=== PATIENT | female | born 1940 | race Caucasian/White ===

== ENCOUNTER 2016-06-16 19:48 | Observation (INO) | payer MEDICARE, OTHER ==
[~2016-06-16] VITALS: Ht 160 cm; Wt 78.0 kg
[2016-06-16 20:01] VITALS: BP 191/84; PULSE 88; RESP 16; O2SAT 94
[2016-06-16 21:01] LABS: BASOPHILS % (AUTO) 0.2 % (0-3); MONOCYTES % (AUTO) 8.1 % (4-12); Mean Corpuscular Hemoglobin 28.1 pg (27.0-35.0); Mean Corpuscular Volume 85.4 fL (81-100); NEUTROPHILS % (AUTO) 76.7 % (40-74); Platelet Count 182 bil/L (150-400)
[2016-06-16 21:20] LABS: TROPONIN T 0.01 ug/L (0.0-0.011)
--- NOTE | 2016-06-16 21:23 | ED.REPORT ---
HPI-Chest Pain 40 and Over Date of Service Jun 16, 2016 ED Provider: Dr. Omar Nuñez D.O. A 76 year old female with a medical history including IDDM, hypertension, and [place] s/p CABG (2015) presents to the ED via EMS with right-sided chest pain onset 1330 today. The pain lasted for three hours, with radiation to her right arm and right shoulder blade. The patient was given 4x baby ASA in clinic, after her symptoms had resolved spontaneously. EMS found her hypertensive at 210/98 with otherwise normal vital signs. Her symptoms are similar to those from her previous MO. Nursing Notes Stated Complaint: CHEST PAIN Chief Complaint: Chest Pain Nursing Notes Reviewed: Yes Allergies: Coded Allergies: Cephalosporins (Verified Allergy, Intermediate, 06/16/16) Quinolones (Verified Allergy, Intermediate, 06/16/16) Sulfa (Sulfonamide Antibiotics) (Verified Allergy, Intermediate, 06/16/16) cefaclor (Verified Allergy, Intermediate, 06/16/16) ciprofloxacin (Verified Allergy, Intermediate, 06/16/16) exenatide (Verified Allergy, Intermediate, 06/16/16) lisinopril (Verified Allergy, Intermediate, 06/16/16) metformin (Verified Allergy, Intermediate, 06/16/16) neomycin (Verified Allergy, Intermediate, 06/16/16) nitrofurantoin (Verified Allergy, Intermediate, 06/16/16) penicillamine (Verified Allergy, Intermediate, 06/16/16) pioglitazone (Verified Allergy, Intermediate, 06/16/16) Scheduled Aspirin Chew (Aspirin Chew) 81 Mg Chew 81 MG PO DAILY Clopidogrel Bisulfate (Plavix) 75 Mg Tablet 75 MG PO DAILY Insulin Glargine (Lantus U100 Insulin Vial) 100 Unit/Ml Vial 15 UNIT SUBQ BID Losartan Potassium (Losartan Potassium) 25 Mg Tablet 25 MG PO BID Metoprolol Tartrate (Metoprolol Tartrate) 50 Mg Tablet 50 MG PO BID Rosuvastatin Calcium (Rosuvastatin Calcium) 20 Mg Tablet 20 MG PO HS General Time Seen by MD: 21:23 Chief Complaint Chest pain Hx Obtained From: Patient Arrived By: Ambulance Sudden in Onset?: Yes Onset Occurred: 5 - 8 hours ago Symptom Duration: 1 - 4 hours Location: : Chest right Quality: Painful Radiation: : Arm right: Back (Right shoulder blade) Severity: Current: No pain currently Severity: Maximum: Moderate Associated with: Denies: Fever Context Related History: Reports: Diabetes mellitus, Hypertension, Myocardial infarction Recent Healthcare: Recent doctor visit Similar Sx Previous: Yes Past Medical History Past Medical History IDDM MO Hypertension Colon polyps Diverticular disease - 1992 Hemorrhoids - 1962 Cataracts - 2015 Migraines MS - 1965 Asthma Osteoarthritis Past Surgical History CAPG January 2016 Hysterectomy Smoking History Former Smoker Social History Lives on [address] Other Social History: Good social support, Ambulatory Status Independent Review of Systems Review of Systems Note: + hypertension (210/98) Constitutional: Denies: Fever Cardiovascular: Reports: Chest pain GI: Denies: Vomiting Musculoskeletal: Reports: Back pain (Right shoulder blade) Complete sys rev & neg: except as marked. Physical Exam Initial Vital Signs Vital Signs (First) Date Time Temp Pulse Resp B/P Pulse Ox O2 Delivery O2 Flow Rate FiO2 06/16/16 20:01 36.9 88 16 191/84 94 Room Air Initial VS: Reviewed Head / Eyes: Atraumatic, Normocephalic ENT: Conjunctiva normal, No scleral icterus Neck: Supple, Full range of motion Skin: Warm, Dry, No cyanosis Neurologic: Alert, Oriented, Nonfocal Psychiatric: Mood/affect normal, Behavior normal, Normal thought content General/Constitutional: Awake, Alert, No acute distress Respiratory / Chest: Breath sounds NL, Breath sounds = bilat, No respiratory distress Midline sternotomy scar healing well Cardiovascular: Heart rate NL, Regular rhythm, Heart sounds NL Lower Ext Edema: Positive: Bilateral 1+ Abdomen: Soft, Non-tender Interpretation & Diagnostics Lab Results Interpretation Result Diagram: 06/16/16205206/16/162052 Test 06/16/16 20:30 06/16/16 20:53 Urine Color Straw (YELLOW) Urine Appearance Clear (CLEAR,HAZY) Urine pH 7.0 (5.0-8.0) Urine Specific [place] 1.015 (1.003-1.035) Urine Protein Negativemg/dL (NEG,TRACE) Urine Glucose (UA) 100mg/dL (NEGATIVE) Urine Ketones Negativemg/dL (NEGATIVE) Urine Occult Blood Negative (NEGATIVE) Urine Nitrite Negative (NEGATIVE) Urine Bilirubin Negative (NEGATIVE) Urine Urobilinogen Normalmg/dL (NORMAL) Urine Leukocyte Esterase Negative (NEGATIVE) Urine RBC 0-2/hpf (0-2) Urine WBC 0-5/hpf (0-5) Urine Epithelial Cells Few/hpf (NONE-MOD) Urine Crystals None seen (NONE SEEN) Urine Bacteria Few/hpf (NONE-FEW) Urine Hyaline Casts None/lpf (NONE) Urine Granular Casts None seen (NONE SEEN) Urine Waxy Casts None seen (NONE SEEN) Urine Red Blood Cell Casts None seen (NONE SEEN) Urine White Blood Cell Casts None seen (NONE SEEN) Urine Mucus None seen (None Seen) Urine Trichomonas None seen (NONE SEEN) Urine Yeast None (NONE SEEN) Urine Culture Reflexed Not indicated White Blood Count 9.9th/mm3 (3.8-10.1) Red Blood Count 5.01mil/mm3 (3.90-5.20) Hemoglobin 14.1g/dL (12.0-15.6) Hematocrit 42.8% (35.0-46.0) Mean Corpuscular Volume 85.4fL (81-100) Mean Corpuscular Hemoglobin 28.1pg (27.0-35.0) Mean Corpuscular Hemoglobin Concent 32.9% (32.0-37.0) Red Cell Distribution Width 15.2% (12.3-15.4) Platelet Count 182bil/L (150-400) Neutrophils (%) (Auto) 76.7% (40-74) Lymphocytes (%) (Auto) 13.7% (14-46) Monocytes (%) (Auto) 8.1% (4-12) Eosinophils (%) (Auto) 1.0% (0-5) Basophils (%) (Auto) 0.2% (0-3) Hold Urine Received (Received) Sodium Level 141mEq/L (134-144) Potassium Level 3.4mEq/L (3.5-5.2) Chloride Level 102mEq/L (97-108) Carbon Dioxide Level 25mmol/L (18-29) Blood Urea Nitrogen 13mg/dL (8-27) Creatinine 0.63mg/dL (0.57-1.00) Estimat Glomerular Filtration Rate 132mL/min (>59) Glucose Level 187mg/dL (60-99) Calcium Level 8.2mg/dL (8.5-10.1) Total Bilirubin 0.3mg/dL (0.0-1.2) Aspartate Amino Transf (AST/SGOT) 14U/L (0-50) Alanine Aminotransferase (ALT/SGPT) 14U/L (0-32) Alkaline Phosphatase 79U/L (25-165) Pro-B-Type Natriuretic Peptide 1163pg/mL (0-738) Total Protein 6.5g/dL (6.4-8.4) Albumin 3.8g/dL (3.4-5.0) ECG Interpretation ECG Interpretation: Sinus rhythm rate 89 Time: 19:57 Interpreted by: ED physician X-Ray Chest Interpretation Chest Xray Interpretation: IMPRESSION: Mild elevation of the right hemidiaphragm, chronicity uncertain given the absence of comparison films. No source of chest pain is found. Dictated by: Jae Garcia M.D. on 06/16/2016 at 21:29 View: Portable, 1 view Interpretation / Wet Read by: Interpret - Radiologist Re-Eval/Medical Decision Med Decision/Clinical Course We will admit her for serial troponins and consider stress testing: She had 90 minutes of potential ischemic chest pain. The pain is similar to prior pain that prompted her to undergo coronary artery bypass grafting. She lives on [address] and there are no helicopters flying right now. Source of Hx: Old records Time of Eval: 22:00 Patient Status: Condition improved Re-Evaluation/Progress Note: Discussed with patient x-ray results, diagnosis, and plan for admit. Patient agrees with plan for care and all questions were addressed. Consultation : Referral / Consult Name: Raysa Hidalgo Consulted With: Hospitalist Call Returned at: 01:45 Recorder Of Deeds: Agrees with eval, Agrees with plan, Accepts admit Counseled Regarding: Diagnosis, Need for admission Discharge & Departure Primary Impression: Chest pain Chest pain type: precordial chest pain Qualified Code: R07.2 - Precordial pain Disposition: ADMITTED TO HOSPITAL Discharge Condition All VS Reviewed: Yes Condition: Stable Referrals: DORETHA VARGAS MD [facility] Karolina Attestation Portions of this note were transcribed by Janice Obrien. I, Dr. Nuñez, personally performed the history, physical exam, and medical decision-making; I reviewed and confirmed the accuracy of the information in the transcribed note. Signed by: Karolina Biggs, 06/17/2016, 02:34 copies to: DORETHA VARGAS MD; [facility] Omar Nuñez DO Jun 16, 2016 21:23 JANICE OBRIEN Jun 16, 2016 21:28
[2016-06-16 21:31] LABS: Magnesium 1.8 mg/dL (1.6-2.6)
--- NOTE | 2016-06-16 21:31 | DRSVH ---
PROCEDURE: X-RAY CHEST ONE VIEW, PORTABLE ([id number]) INDICATIONS: CHEST PAIN TECHNIQUE: One view of the chest was acquired. COMPARISON: None. FINDINGS: Surgical changes and devices: None. Lungs and pleura: No pleural effusions or pneumothorax. Lungs are clear. Mediastinum: Mediastinal contours appear normal. Heart size is normal. Bones and chest wall: No suspicious bony lesions. Overlying soft tissues appear unremarkable. IMPRESSION: Mild elevation of the right hemidiaphragm, chronicity uncertain given the absence of com parison films. No source of chest pain is found. Dictated by: Jae Garcia M.D. on 06/16/2016 at 21:29 Approved by: Jae Garcia M.D. on 06/16/2016 at 21:29
[2016-06-16 21:40] VITALS: BP 163/86; PULSE 88; RESP 18; O2SAT 97
[2016-06-16] MEDS ORDERED: Nitroglycerin 2% 1 Gm Ointment TOPICAL ONE (22:00)
[2016-06-17] VITALS (10 sets, daily range): BP systolic 139–210; BP diastolic 61–97; PULSE 68–94; RESP 12–18; O2SAT 93–97
[2016-06-17] MEDS ORDERED: Insulin GLARgine 100 Unit/mL Syringe SUBQ ONE
[2016-06-17] MEDS ORDERED: Senna-Docusate 8.6-50 mg Tablet PO PRN (01:50)
[2016-06-17] MEDS ORDERED: Alum-Mag Hydrox-Simeth 30 mL Suspension PO PRN (01:50)
[2016-06-17] MEDS ORDERED: Ondansetron 2 mg/mL 2 mL Inj IVPUSH PRN (01:50)
[2016-06-17] MEDS ORDERED: Polyethylene Glycol (PEG) 17 Gm Powder PO PRN (01:50)
[2016-06-17] MEDS ORDERED: Atropine 1 mg/10 mL (Code) Syringe IVPUSH PRN (02:20)
[2016-06-17 02:57] LABS: APPEARANCE,URINE CLEAR (CLEAR,HAZY); COLOR,URINE STRAW (YELLOW); OCCULT BLOOD,URINE NEGATIVE (NEGATIVE); UROBILINOGEN,URINE NORMAL (NORMAL)
[2016-06-17] MEDS: 0.9% Sodium Chloride 1,000 ML IV SCH ×2 (02:59→18:22)
--- NOTE | 2016-06-17 03:00 | NUR ---
Admit and headache. Patient was brought to the [facility] by an community development technician. Patient is able to ambulate under her own power. Patient settled in bed and placed on tele. Sinus rhythm at 70 noted. Patient is free from chest pain, shortness of breath and weakness. Admission completed and patient assessed. Patient was medicated with Tylenol for a headache. Patient currently has an inch of nitro paste on her left upper chest. Patient resting comfortably in bed.
[2016-06-17 03:04] LABS: INR 1.04 ratio
[2016-06-17 03:38] LABS: TROPONIN T 0.01 ug/L (0.0-0.011)
[2016-06-17 03:41] LABS: Magnesium 1.7 mg/dL (1.6-2.6)
--- NOTE | 2016-06-17 03:42 | PCM.HPMED ---
Subjective Date of Service Jun 17, 2016 Primary Provider: Admitting Physician: Raysa Hidalgo DO Primary Care Physician: Gasper Rose MD Attending Physician: Raysa Hidalgo DO Admit Status: From the Emergency Department Chief Complaint: Acute Chest pain History of Present Illness: A 76 year old female with a medical history including DM on Lantus 15 mg twice a day, hypertension on metoprolol and losartan, and [place] s/p CABG (2015) presents to the ED via EMS with right-sided chest pain onset 1330 today. The pain lasted for three hours, and described as a chest pressure substernal with radiation to her right arm and right shoulder blade. Pain occurred upon she was at rest. Patient says that she had just eaten her birthday lunch which consisted of a hamburger and ivorian fries. Patient describes symptoms similar to prior RI except that she denied having diaphoresis on this occasion. Associated symptoms included eructations. Patient denied previous history of angina, .diaphoresis, nausea, vomiting, abdominal pain, fever, shortness of breath, dyspnea, history of acid reflux, focal neurological signs. The patient was given 4x baby ASA and her symptoms had resolved spontaneously. EMS found her hypertensive at 210/98 with otherwise normal vital signs. Her symptoms are similar to those from her previous RI. Patient currently attends cardiac rehabilitation twice per week. In the ED temperature 36.9, pulse 88, blood pressure 163/86 down from 191/84, respirations 18, pulse oximetry 97% on room air. Hemogram: Within normal limits Chemistry: Sodium 141, potassium 3.4L, glucose 187, calcium 8.2, magnesium 1.8, troponin was 0.010, BMP 1163. Chest x-ray mild elevation of the right hemidiaphragm chronically uncertain given the absence of comparison films no source of chest pain found. Review of Systems: Comprehensive review of systems was conducted and found to be negative except for that mentioned in the history present illness. Allergies Coded Allergies: Cephalosporins (Verified Allergy, Intermediate, 06/16/16) Quinolones (Verified Allergy, Intermediate, 06/16/16) Sulfa (Sulfonamide Antibiotics) (Verified Allergy, Intermediate, 06/16/16) cefaclor (Verified Allergy, Intermediate, 06/16/16) ciprofloxacin (Verified Allergy, Intermediate, 06/16/16) exenatide (Verified Allergy, Intermediate, 06/16/16) lisinopril (Verified Allergy, Intermediate, 06/16/16) metformin (Verified Allergy, Intermediate, 06/16/16) neomycin (Verified Allergy, Intermediate, 06/16/16) nitrofurantoin (Verified Allergy, Intermediate, 06/16/16) penicillamine (Verified Allergy, Intermediate, 06/16/16) pioglitazone (Verified Allergy, Intermediate, 06/16/16) Home Medications Metoprolol tartrate 50 mg twice a day Rosuvastatin 20 mg daily Losartan 25 mg twice a day Plavix 75 mg daily Lantus U1 100, 15 units 2 times per day Aspirin 81 mg daily Vitamin D 3 1000 units daily Mupirocin PMH IDDM RI Hypertension Colon polyps Diverticular disease - 1992 Hemorrhoids - 1962 Cataracts - 2015 Migraines MS - 1964 Asthma Osteoarthritis Surgical History CABG January 2016 Hysterectomy Social History Hx Alcohol Use: Yes Hx Substance Use: No Smoking Status: Former Smoker Living Arrangement: with Family Exam Vital Signs Vital Sign - Last Date Time Temp Pulse Resp B/P Pulse Ox O2 Delivery O2 Flow Rate FiO2 06/16/16 21:40 36.9 88 18 163/86 97 Room Air Exam General: Alert and oriented 3 no acute distress resting comfortably in bed without pain HEENT: Normocephalic atraumatic, eyes PERRLA, EOMI, neck supple no adenopathy, no JVD, no masses, throat oropharynx appears normal no erythema Lungs: Lungs with mild crackles bilaterally Heart: Regular rate and rhythm no murmurs Abdomen: Soft nontender normal bowel tones, no rebound no guarding Extremities: Pulses equal and symmetric bilaterally upper/lower extremity, no edema Neurological: Cranial nerves intact 2 through 12 grossly Skin: Warm and dry Lab and Diagnostics Result Diagram: 06/16/16205206/16/162052 Assessment & Plan A 76 year old female with a medical history including IDDM, hypertension, and RI s/p CABG (2015) presents to the ED via EMS with right-sided chest pain onset 1330 today. The pain lasted for three hours, with radiation to her right arm and right shoulder blade. The patient was given 4x baby ASA in clinic, after her symptoms had resolved spontaneously. EMS found her hypertensive at 210/98 with otherwise normal vital signs. Her symptoms are similar to those from her previous RI. #1 chest pain, Present on Admission, active -EKG for the morning -Troponin I X 3, CPK-MB, ordered and pending -Consider cardiac stress testing in AM following negative troponin x3 -O2 Sats keep > 94% -IV fluids -Continue home Metoprolol -Continue home Losartan patient has allergy to Lisinopril -Continue home rosuvastatin -Morphine for pain control -Nitro SL,(PRN) -Continue home Aspirin + Plavix 75mg daily to follow -Heparin if troponin comes back positive -Continuous Cardiac Monitoring/BP monitoring -Cardio Consult (in AM) -Patient's fur dressing supervisor is Aníbal Rose -Labs (Lipid Panel, CBC, CMP, PT/PTT/INR), referred impending -NPO for now -Cardiac Rehab on D/C if RI #Hypokalemia, present on admission, active - Potassium 3.4 -We will replete potassium #Hyperglycemia, present on admission, active -Glucose 184 -Will start low-dose correctional insulin -Globin A1c ordered impending Other chronic problems #DM -Continue home Lantus 15 units of U 100 twice a day Hypertension - Continue home medications metoprolol, losartan as previously stated Diverticulosis, presumed stable MS, presumed stable Asthma, presumed stable Osteoarthritis, presumed stable -Patient Tylenol daily at bedtime GI and bowel prep as needed Disposition: Admitted to in patient service secondary to severity of presenting symptoms, treatment plan, complexity of clinical work up, and risk of adverse events. CODE STATUS: Full PCP: Gasper Rose DVT prophylaxis: Patient on heparin as above Pain Evaluation: Adequate Pain Control Resuscitation Status: CPR: Attempt Resuscitation Attending Statement The patient was seen and examined together with house staff on 06/17/2016 and I have added additional information to the note above. Jorge Cornell DO Jun 17, 2016 02:53 Raysa Hidalgo DO Jun 17, 2016 04:37
[2016-06-17] MEDS ORDERED: Glucose 40% Oral Gel 15 Gm Tube PO PRN ×2 (03:50→18:25)
[2016-06-17] MEDS: Insulin LISPRO 300 Unit/3 mL Inj SUBQ SCH ×5 (08:00→20:12)
[2016-06-17] MEDS: Sodium Chloride LOK Flush 10 mL Syringe IVFLUSH SCH ×2 (08:30→17:32)
[2016-06-17] MEDS ORDERED: CLOP75TA3 PO (10:14)
[2016-06-17] MEDS ORDERED: ROSU20TA27 PO (10:14)
[2016-06-17] MEDS ORDERED: LOSA25TA21 PO (10:14)
[2016-06-17] MEDS ORDERED: METO50TA3 PO (10:14)
[2016-06-17] MEDS ORDERED: INSU100V7 SUBQ (10:14)
[2016-06-17] MEDS ORDERED: ASPI81TA3 PO (10:14)
--- NOTE | 2016-06-17 11:34 | NUR ---
Case Management: Clarification of patient status: observation on 06/17/16 per MD order. Zion Bazzi RN
[2016-06-17] MEDS: Insulin GLARgine 100 Unit/mL Syringe SUBQ SCH ×2 (13:00→20:06)
--- NOTE | 2016-06-17 15:45 | NUR ---
MIBI Patient npo since midnight, denies chest pain, nausea or sob. Amb indep steady gait. Patient down to NM via wheelchair for MIBI. See vitals, tele SR.
[2016-06-17] MEDS ORDERED: hydrALAZINE 20 mg/mL Inj IV STA (15:54)
--- NOTE | 2016-06-17 17:52 | NUR ---
Case Management: DAWSON explained to patient at 1550, all questions answered. Signed original placed in chart, copy given to patient. "How Medicare Covers Self-Administered Drugs Given in Hospital Outpatient Settings" given to patient. Heena Garcia RN
[2016-06-17] MEDS ORDERED: Potassium Chloride 20 mEq SR Tablet PO ONE (18:00)
--- NOTE | 2016-06-17 18:06 | PCM.PNMED ---
Subjective Date of Service Jun 17, 2016 Subjective Mrs. Cookie Li is a pleasant 76-year-old lady with a medical history including DM on Lantus 15 mg twice a day, hypertension on metoprolol and losartan, and [place] s/p CABG (2015) presents to the ED via EMS with right-sided chest pain onset 1330 today. The pain lasted for three hours, and described as a chest pressure substernal with radiation to her right arm and right shoulder blade. Pain occurred upon she was at rest. Patient says that she had just eaten her birthday lunch which consisted of a hamburger and italian fries. Patient describes symptoms similar to prior IN except that she denied having diaphoresis on this occasion. Associated symptoms included eructations. Patient denied previous history of angina,.diaphoresis, nausea, vomiting, abdominal pain, fever, shortness of breath, dyspnea, history of acid reflux, focal neurological signs. The patient was given 4x baby ASA and her symptoms had resolved spontaneously. EMS found her hypertensive at 210/98 with otherwise normal vital signs. Her symptoms are similar to those from her previous IN. Patient currently attends cardiac rehabilitation twice per week. Overnight events: No acute overnight events to speak of. Today: Patient states she feels great and has no other complaints. Exam Vital Signs Vital Sign - Last Date Time Temp Pulse Resp B/P Pulse Ox O2 Delivery O2 Flow Rate FiO2 06/17/16 11:21 36.7 81 15 197/75 95 Room Air Intake and Output 06/16/16 06/16/16 06/17/16 Cumulative From/Thru 15:00 23:00 07:00 06/16/16 20:01 - 06/17/16 05:26 Intake Total 350 ml 350 ml Output Total 200 ml 200 ml Balance 150 ml 150 ml Intake Oral 350 ml 350 ml Output Urine Total 200 ml 200 ml # Bowel Movements 0 0 Exam General: Elderly lady sitting in the chair appearing younger than stated age in no acute distress, well-developed, well-nourished, appropriately interactive HEENT: Normocephalic, atraumatic. External ears without defect. Pupils equal, round, and reactive to light and accommodation. Anicteric sclerae, moist conjunctivae, and no lid lag. Oropharynx free of erythema and cobble stoning with moist mucosa. Neck: Supple with full range of motion. No jugular venous distension. No bruits. No lymphadenopathy or thyromegaly. Cardiovascular: Regular rate and rhythm with no murmurs, rubs, or gallops appreciated Pulmonary: Clear to auscultation bilaterally with no crackles, wheezes, or rhonchi. Normal respiratory effort with no use of accessory muscles. Abdomen: Bowel tones present. Soft, nontender, nondistended. No hepatosplenomegaly or masses appreciated. Extremities: No clubbing, cyanosis, edema, or lymphadenopathy appreciated. Skin: Normal temperature, turgor, and texture; no rash, ulcers, or subcutaneous nodules appreciated. Neurological: Cranial nerves grossly intact. Normal muscle strength, tone, and bulk. Reflexes, coordination, and sensory function within normal limits. No known gait impairment. Psychiatric: Normal mood and affect. Alert and oriented to person, place, and time. IVs and Medications Medications Reviewed: Medications were reviewed in detail Lab and Diagnostics Result Diagram: 06/16/16205206/16/162052 Assessment & Plan Mrs. Cookie Li is a pleasant 76 year old lady with a past medical history including IDDM, hypertension, and [place] s/p CABG (2015) presents to the ED via EMS with right-sided chest pain onset 1330 today. The pain lasted for three hours, with radiation to her right arm and right shoulder blade. The patient was given 4x baby ASA in clinic, after her symptoms had resolved spontaneously. EMS found her hypertensive at 210/98 with otherwise normal vital signs. Her symptoms are similar to those from her previous IN. Patient was to have exercise stress test today however blood pressure was not controlled plan for stress test tomorrow in the AM. 1. Chest pain, Present on Admission, Resolved. - EKG normal sinus rhythm and no ST depressions or elevations.. - Troponin I X 3, CPK-MB negative. - Nuclear medicine cardiac exercise stress test scheduled for today however blood pressure was not controlled. - Continue home rosuvastatin - Continue home Aspirin + Plavix 75mg daily to follow - Continuous Cardiac Monitoring/BP monitoring - Patient's dental treatment coordinator is Aníbal Rose. 2. Acute on chronic Hypertension, present on admission. Active. - Holding home metoprolol for stress test tomorrow. - Increased home Losartan from 25 twice a day to 50mg BID - We will consider adding amlodipine if this does not control blood pressure. 3. Hypokalemia, present on admission, active - Potassium 3.4 - We will replete potassium 4. Hyperglycemia, present on admission, active - Glucose 186 - Lantus at 1/2 home dose. - Hemiglobin A1c - pending - Nutritional correction this evening. Chronic problems DM -Continue 1/2 home Lantus 15 units of U 100 twice a day (7 units BID) Diverticulosis, presumed stable MS, presumed stable Asthma, presumed stable Osteoarthritis, presumed stable Patient Tylenol daily at bedtime Acetaminophen for mild pain when necessary. Bowel regimen Senna and MiraLAX scheduled and PRN. Zofran when necessary for nausea and vomiting. SubQ heparin held for now. SCDs in place. High-risk medications: IV morphine when necessary Disposition: Likely home tomorrow following exercise stress test. Pain Evaluation: Adequate Pain Control VTE Mechanical Devices: Intermittant Pneumatic CD Resuscitation Status: CPR: Attempt Resuscitation Attending Statement The patient was seen and examined together with Dr. Gupta on 06/17/2016 and I agree with the history, exam and plan as outlined in the note above. . MIKE GUPTA DO Jun 17, 2016 14:50 Gasper Waggoner MD Jun 18, 2016 08:24
--- NOTE | 2016-06-17 18:35 | NUR ---
Activity/HTN Patient returned to room at 1615, unable to complete MIBI r/t HTN, notified and meds ordered. Patient amb indep steady gait. See vitals. Tele SR. Plan for npo after midnight to finish MIBI.
[2016-06-17] MEDS ORDERED: hydrALAZINE 20 mg/mL Inj IV ONE (23:05)
--- NOTE | 2016-06-17 23:23 | NUR ---
Blood pressure. Notified by [facility] that the patient's blood pressure was in the 200's systolic. Patient assessed and found to be asymptomatic. Provider Ly notified and orders for IV hydralazine 10mg received and administered. Addendum: 06/17/16 at 2357 by JESSIE LEHMAN RN Patient responded well to blood pressure medications(BP 150/61). Patient complaint free and resting comfortably in bed.
[2016-06-18] VITALS (9 sets, daily range): BP systolic 135–197; BP diastolic 63–87; PULSE 80–102; RESP 12–20; O2SAT 94–96
[2016-06-18] MEDS: Sodium Chloride LOK Flush 10 mL Syringe IVFLUSH SCH ×3 (00:30→16:33)
[2016-06-18] MEDS: 0.9% Sodium Chloride 1,000 ML IV SCH (01:57)
[2016-06-18 02:43] LABS: BASOPHILS % (AUTO) 0.2 % (0-3); EOSINOPHILS % (AUTO) 1.2 % (0-5); MONOCYTES % (AUTO) 7.9 % (4-12); Mean Corpuscular Hemoglobin 27.8 pg (27.0-35.0); Mean Corpuscular Volume 84.9 fL (81-100); NEUTROPHILS % (AUTO) 70.8 % (40-74); Platelet Count 212 bil/L (150-400)
[2016-06-18] MEDS ORDERED: hydrALAZINE 20 mg/mL Inj IV ONE (03:10)
[2016-06-18] MEDS: Insulin LISPRO 300 Unit/3 mL Inj SUBQ SCH ×5 (08:00→17:46)
[2016-06-18] MEDS: Insulin GLARgine 100 Unit/mL Syringe SUBQ SCH (08:39)
--- NOTE | 2016-06-18 10:01 | NUR ---
Social Work: Initial Assessment / Readiness for d/c Data: Pt is a 76 y/o female admitted for chest pain. Pt's PCP is Dr Rose, pt's insurance is Medicare with [employer]. EMR reviewed. Readmit score not listed. BUDGET CONTROLLER met with pt at bedside, role explained. Pt states she lives on [address] with her in a single story home where she uses no DME. Pt states she drives, has no hx of HH or SNF, not LTC or VA benefits, and is not a caregiver. Pt states she does not have a DPOA and declined information stating she already has information. Pt will require a priority boarding pass for ferraubrey ride. Priority boarding pass in BUDGET CONTROLLER folder for MD to sign prior to d/c which will likely either be today or tomorrow. No other d/c planning needs anticipated at this time. BUDGET CONTROLLER will continue to follow. Assessment: Pt who is independent at baseline. Plan: Pt will d/c home via POV when medically stable. Priority boarding pass in BUDGET CONTROLLER folder for MD to sign prior to d/c which will likely either be today or tomorrow. No other d/c planning needs anticipated at this time. BUDGET CONTROLLER will continue to follow. JANICE Shukla Addendum: 06/18/16 at 1006 by JANICE ABREU Amended: Links added.
--- NOTE | 2016-06-18 12:10 | PCM.DIMED ---
MIKE GUPTA DO 06/18/16 1210: Discharge Instructions Date of Service Jun 18, 2016 Dates of Hospitalization Jun 17, 2016 at 00:48 Discharge Diagnosis Discharge Diagnosis 1. Chest pain, Present on Admission, Resolved. 2. Acute on chronic Hypertension, present on admission. Stable. 3. Hypokalemia, present on admission, Stable. 4. Hyperglycemia, present on admission, improving. Chronic problems DM -Continue 1/2 home Lantus 15 units of U 100 twice a day (7 units BID) Diverticulosis, presumed stable MS, presumed stable Asthma, presumed stable Osteoarthritis, presumed stable Diet Heart Healthy, Diabetic Call your provider Fever or Chills, Shortness of breath, Chest pain, Vomitting Patient Instructions Do not hesitate to call emergency services or your primary care physician if you experience any of the following. -High unrelenting fevers. -Uncontrolled vomiting. -Severe hypertension. -Syncope or loss of consciousness. -Chest pain or severe shortness of breath. Follow up with your primary care physician in 1-2 weeks time following your emergency department visit for medication checks and general well-being. Follow-up plan Continue home medications: - Aspirin 81 mg daily. - Clopidogrel 75 mg daily. - Rosuvastatin 20 mg daily. - Insulin per primary care physician. New/altered home medications: - Losartan 50 mg Twice per day. - Amlodipine 5 mg Twice per day. - Carvedilol 6.25 mg Twice per day. STOP MEDICATIONS: -- Metoprolol Tartrate 50 Twice per day. Follow-up Provider: Gasper Rose MD Follow-up with PCP in: 2 weeks Provider: Aníbal Rose MD Follow-up in: 2 weeks Miguel Epperson 06/18/16 1752: Discharge Instructions Medication Instructions STOP Metoprolol tartrate Gasper Waggoner MD 06/21/16 0746: Discharge Instructions Attending's Statement The patient was seen and examined together with Dr. Gupta on 06/18/2016 and I agree with the history, exam and plan as outlined in the note above. . MIKE GUPTA DO Jun 18, 2016 12:10 Miguel Epperson Jun 18, 2016 17:52 Gasper Waggoner MD Jun 21, 2016 07:46
--- NOTE | 2016-06-18 16:35 | DRSVH ---
PROCEDURE: 2 DAY STRESS TEST Rest and exercise myocardial perfusion SPECT with gated imaging and ejection fraction RADIOPHARMACEUTICAL: 7.8 mCi Tc-99m tetrafosmin IV at rest and 28.3 mCi Tc-99m tetrafosmin IV at peak exercise. [id number] was performed. INDICATIONS: 76 year-old woman with chest Pain. She has coronary artery disease with history of myoc ardial infarction and coronary artery bypass grafting. Evaluate myocardial ischemia. TECHNIQUE: Radiopharmaceutical was injected at peak stress test, and also at rest. SPECT images wer e obtained. SPECT myocardial perfusion images were displayed in short axis, horizontal long axis, an d vertical long axis views. Gated images were reviewed using [employer] software. COMPARISON: None. CARDIAC STRESS: A standard Kofi treadmill exercise tolerance test was performed by the patient under the supervision of an attending staff. The patient exercised for 6 minutes and 0 seconds; functional aerobic impair ment (GENI) is -10 %. Hemodynamic data: There is normal blood pressure and heart rate response to exercise stress. Patien t achieved 97% of maximum predicted heart rate at peak exercise. Symptoms: Patient denied chest pain during exercise. EKG: No diagnostic EKG changes of ischemia; frequent PVCs. FINDINGS: Raw data: There is good myocardial labeling by radiotracer. No significant motion artifacts. Left ventricle function: Gated images demonstrate normal left ventricle wall thickening. No segment al wall motion abnormality. No transient ischemic dilation. The left ventricle resting end-diastoli c volume is normal. Left ventricle stress ejection fraction is 62%; normal values are above 45%. Myocardial perfusion: There is a small, mild, fixed anteroapical perfusion defect which is resolved on prone imaging, consistent with attenuation artifact. There is otherwise normal distribution of act ivity in the left and right ventricular myocardium. No reversible perfusion defects to suggest myoca rdial ischemia. IMPRESSION: 1. Normal myocardial perfusion images. 2. Normal left ventricular volume and systolic function. 3. Above average exercise capacity. No chest pain or diagnostic EKG changes for ischemia. PQRS ATTESTATIONS: Measure 322 - Is this imaging test primarily performed on a low-risk surgery patient for preoperative evaluation within 30 days preceding their low-risk non-cardiac surgery? Low-risk surgery is defined as cardiac or myocardial infarction less than 1%, including (but not limited to) endoscopic pr ocedures, superficial procedures, cataract surgery, and excisional breast surgery: Answer: No Measure 323 - Is this imaging test performed primarily for the monitoring of an asymptomatic patient who had percutaneous coronary intervention on the visit date or within 2 years of the visit date? An swer: No Measure 324 - Is this imaging test performed primarily for the initial detection and risk assessment on an asymptomatic, low coronary heart disease patient? Low CHD risk definition = clinicians should consider the maximum number of available patient factors used to estimate risk based on [place] (A TP III criteria), typically age, gender, diabetes, smoking status, and use of blood pressure medicati on, and integrate age appropriate estimates for missing elements, such as LDL or standard blood press ure. Answer: No Dictated by: Khushi Roberson M.D. on 06/18/2016 at 16:29 Approved by: Khushi Roberson M.D. on 06/18/2016 at 16:34
[2016-06-18] MEDS ORDERED: AMLO5TAB2 PO (17:25)
[2016-06-18] MEDS ORDERED: LOSA50TA3 PO (17:25)
[2016-06-18] MEDS ORDERED: CARV6.252 PO (17:54)
--- NOTE | 2016-06-18 19:22 | NUR ---
Stress Test/Discharge Pt. went to stress test at ~1415 and returned at ~1615, VS stable and no c/o pain, CP, or SOB. Pt. discharged to home with and given educational material. Pt. instructed to make a follow up appointment with PCP in 1-2 weeks, Pt. stated she understood. Pt. took all her belongings and left the room, with , 2002 PCC at about 1900.
--- NOTE | 2016-06-21 15:10 | PCM.DC.MED ---
Discharge Summary Date of Service Jun 21, 2016 Dates of Hospitalization Date of Hospital Admission Jun 17, 2016 at 00:48 Date of Discharge: Jun 18, 2016 Providers: Admitting Physician: Raysa Hidalgo DO Primary Care Physician: Gasper Rose MD Attending Physician: Raysa Hidalgo DO Diagnosis at Time of Discharge Diagnosis at Time of Discharge 1. Chest pain, Present on Admission, Resolved. 2. Acute on chronic Hypertension, present on admission. Stable. 3. Hypokalemia, present on admission, Stable. 4. Hyperglycemia, present on admission, improving. Chronic problems DM -Continue 1/2 home Lantus 15 units of U 100 twice a day (7 units BID) Diverticulosis, presumed stable MS, presumed stable Asthma, presumed stable Osteoarthritis, presumed stable Brief History A 76 year old female with a medical history including DM on Lantus 15 mg twice a day, hypertension on metoprolol and losartan, and MN s/p CABG (2015) presents to the ED via EMS with right-sided chest pain onset 1330 today. The pain lasted for three hours, and described as a chest pressure substernal with radiation to her right arm and right shoulder blade. Pain occurred upon she was at rest. Patient says that she had just eaten her birthday lunch which consisted of a hamburger and bel[place]ian fries. Patient describes symptoms similar to prior MN except that she denied having diaphoresis on this occasion. Associated symptoms included eructations. Patient denied previous history of angina, .diaphoresis, nausea, vomiting, abdominal pain, fever, shortness of breath, dyspnea, history of acid reflux, focal neurological signs. The patient was given 4x baby ASA and her symptoms had resolved spontaneously. EMS found her hypertensive at 210/98 with otherwise normal vital signs. Her symptoms are similar to those from her previous MN. Patient currently attends cardiac rehabilitation twice per week. In the ED temperature 36.9, pulse 88, blood pressure 163/86 down from 191/84, respirations 18, pulse oximetry 97% on room air. Hemogram: Within normal limits Chemistry: Sodium 141, potassium 3.4L, glucose 187, calcium 8.2, magnesium 1.8, troponin was 0.010, BMP 1163. Chest x-ray mild elevation of the right hemidiaphragm chronically uncertain given the absence of comparison films no source of chest pain found. Hospital Course Mrs. Cookie Li is a pleasant 76 year old lady with a past medical history including IDDM, hypertension, and MN s/p CABG (2016) presents to the ED via EMS with right-sided chest pain onset 1330 today. The pain lasted for three hours, with radiation to her right arm and right shoulder blade. The patient was given 4x baby ASA in clinic, after her symptoms had resolved spontaneously. EMS found her hypertensive at 210/98 with otherwise normal vital signs. Her symptoms are similar to those from her previous MN. Patient was to have exercise stress test today however blood pressure was not controlled plan for stress test tomorrow in the AM. 1. Chest pain, Present on Admission, Resolved. - EKG normal sinus rhythm and no ST depressions or elevations.. - Troponin I X 3, CPK-MB negative. - Nuclear medicine cardiac exercise stress test scheduled for today however blood pressure was not controlled. - Continue home rosuvastatin - Continue home Aspirin + Plavix 75mg daily to follow - Continuous Cardiac Monitoring/BP monitoring - Patient's roof truss detailer is Aníbal Rose. 2. Acute on chronic Hypertension, present on admission. Active. - Holding home metoprolol for stress test tomorrow. - Increased home Losartan from 25 twice a day to 50mg BID - We will consider adding amlodipine if this does not control blood pressure. 3. Hypokalemia, present on admission, active - Potassium 3.4 - We will replete potassium 4. Hyperglycemia, present on admission, active - Glucose 186 - Lantus at 1/2 home dose. - Hemiglobin A1c - pending - Nutritional correction this evening. Chronic problems DM -Continue 1/2 home Lantus 15 units of U 100 twice a day (7 units BID) Diverticulosis, presumed stable MS, presumed stable Asthma, presumed stable Osteoarthritis, presumed stable Patient Tylenol daily at bedtime Acetaminophen for mild pain when necessary. Bowel regimen Senna and MiraLAX scheduled and PRN. Zofran when necessary for nausea and vomiting. SubQ heparin held for now. SCDs in place. High-risk medications: IV morphine when necessary Disposition: Likely home tomorrow following exercise stress test. Exam Vital Signs (Last) Date Time Temp Pulse Resp B/P Pulse Ox O2 Delivery O2 Flow Rate FiO2 06/18/16 16:23 36.3 94 20 148/68 94 Room Air Exam General: Elderly lady sitting in the chair appearing younger than stated age in no acute distress, well-developed, well-nourished, appropriately interactive HEENT: Normocephalic, atraumatic. External ears without defect. Pupils equal, round, and reactive to light and accommodation. Anicteric sclerae, moist conjunctivae, and no lid lag. Oropharynx free of erythema and cobble stoning with moist mucosa. Neck: Supple with full range of motion. No jugular venous distension. No bruits. No lymphadenopathy or thyromegaly. Cardiovascular: Regular rate and rhythm with no murmurs, rubs, or gallops appreciated Pulmonary: Clear to auscultation bilaterally with no crackles, wheezes, or rhonchi. Normal respiratory effort with no use of accessory muscles. Abdomen: Bowel tones present. Soft, nontender, nondistended. No hepatosplenomegaly or masses appreciated. Extremities: No clubbing, cyanosis, edema, or lymphadenopathy appreciated. Skin: Normal temperature, turgor, and texture; no rash, ulcers, or subcutaneous nodules appreciated. Neurological: Cranial nerves grossly intact. Normal muscle strength, tone, and bulk. Reflexes, coordination, and sensory function within normal limits. No known gait impairment. Psychiatric: Normal mood and affect. Alert and oriented to person, place, and time. Test 06/16/16 20:30 06/16/16 20:53 06/17/16 02:40 06/17/16 08:40 Urine Color Straw (YELLOW) Urine Appearance Clear (CLEAR,HAZY) Urine pH 7.0 (5.0-8.0) Urine Specific [place] 1.015 (1.003-1.035) Urine Protein Negativemg/dL (NEG,TRACE) Urine Glucose (UA) 100mg/dL (NEGATIVE) Urine Ketones Negativemg/dL (NEGATIVE) Urine Occult Blood Negative (NEGATIVE) Urine Nitrite Negative (NEGATIVE) Urine Bilirubin Negative (NEGATIVE) Urine Urobilinogen Normalmg/dL (NORMAL) Urine Leukocyte Esterase Negative (NEGATIVE) Urine RBC 0-2/hpf (0-2) Urine WBC 0-5/hpf (0-5) Urine Epithelial Cells Few/hpf (NONE-MOD) Urine Crystals None seen (NONE SEEN) Urine Bacteria Few/hpf (NONE-FEW) Urine Hyaline Casts None/lpf (NONE) Urine Granular Casts None seen (NONE SEEN) Urine Waxy Casts None seen (NONE SEEN) Urine Red Blood Cell Casts None seen (NONE SEEN) Urine White Blood Cell Casts None seen (NONE SEEN) Urine Mucus None seen (None Seen) Urine Trichomonas None seen (NONE SEEN) Urine Yeast None (NONE SEEN) Urine Culture Reflexed Not indicated Hold Urine Received (Received) Total Bilirubin 0.3mg/dL (0.0-1.2) Aspartate Amino Transf (AST/SGOT) 14U/L (0-50) Alanine Aminotransferase (ALT/SGPT) 14U/L (0-32) Alkaline Phosphatase 79U/L (25-165) Pro-B-Type Natriuretic Peptide 1163pg/mL (0-738) Total Protein 6.5g/dL (6.4-8.4) Albumin 3.8g/dL (3.4-5.0) Prothrombin Time 11.1sec (8.1-12.5) Prothromb Time International Ratio 1.04ratio Hemoglobin A1c 7.4% (4.8-5.6) Magnesium Level 1.7mg/dL (1.6-2.6) Thyroid Stimulating Hormone (TSH) 1.730uIU/mL (0.450-4.500) Troponin T 0.010ug/L (0.0-0.011) Test 06/18/16 02:25 White Blood Count 10.6th/mm3 (3.8-10.1) Red Blood Count 5.18mil/mm3 (3.90-5.20) Hemoglobin 14.4g/dL (12.0-15.6) Hematocrit 44.0% (35.0-46.0) Mean Corpuscular Volume 84.9fL (81-100) Mean Corpuscular Hemoglobin 27.8pg (27.0-35.0) Mean Corpuscular Hemoglobin Concent 32.7% (32.0-37.0) Red Cell Distribution Width 15.7% (12.3-15.4) Platelet Count 212bil/L (150-400) Neutrophils (%) (Auto) 70.8% (40-74) Lymphocytes (%) (Auto) 19.6% (14-46) Monocytes (%) (Auto) 7.9% (4-12) Eosinophils (%) (Auto) 1.2% (0-5) Basophils (%) (Auto) 0.2% (0-3) Sodium Level 141mEq/L (134-144) Potassium Level 4.2mEq/L (3.5-5.2) Chloride Level 104mEq/L (97-108) Carbon Dioxide Level 23mmol/L (18-29) Blood Urea Nitrogen 12mg/dL (8-27) Creatinine 0.57mg/dL (0.57-1.00) Estimat Glomerular Filtration Rate 149mL/min (>59) Glucose Level 177mg/dL (60-99) Calcium Level 9.3mg/dL (8.5-10.1) Triglycerides Level 146mg/dL (0-149) Cholesterol Level 125mg/dL (100-199) LDL Cholesterol, Calculated 55.800mg/dL (0-99) VLDL Cholesterol 29.200mg/dL HDL Cholesterol 40mg/dL (>39) Cholesterol/HDL Ratio 3.13 (0.0-4.4) Discharge Medications Discharge Medications Amlodipine (Amlodipine) 5 Mg Tablet 5 MG PO BID Prescribed by: LEYDI HANNAH, DO Aspirin Chew (Aspirin Chew) 81 Mg Chew 81 MG PO DAILY (Reported) Carvedilol (Carvedilol) 6.25 Mg Tablet 6.25 MG PO BIDWM Prescribed by: LEYDI HANNAH, DO Clopidogrel Bisulfate (Plavix) 75 Mg Tablet 75 MG PO DAILY (Reported) Insulin Glargine (Lantus U100 Insulin Vial) 100 Unit/Ml Vial 15 UNIT SUBQ BID ( Reported) Losartan Potassium (Cozaar) 50 Mg Tablet 50 MG PO BID Prescribed by: LEYDI HANNAH DO Rosuvastatin Calcium (Rosuvastatin Calcium) 20 Mg Tablet 20 MG PO HS (Reported) Additional med instructions STOP Metoprolol tartrate Followup Plan Follow-up plan Continue home medications: - Aspirin 81 mg daily. - Clopidogrel 75 mg daily. - Rosuvastatin 20 mg daily. - Insulin per primary care physician. New/altered home medications: - Losartan 50 mg Twice per day. - Amlodipine 5 mg Twice per day. - Carvedilol 6.25 mg Twice per day. STOP MEDICATIONS: -- Metoprolol Tartrate 50 Twice per day. Discharge Diet: Heart Healthy, Diabetic Patient Instructions Do not hesitate to call emergency services or your primary care physician if you experience any of the following. -High unrelenting fevers. -Uncontrolled vomiting. -Severe hypertension. -Syncope or loss of consciousness. -Chest pain or severe shortness of breath. Follow up with your primary care physician in 1-2 weeks time following your emergency department visit for medication checks and general well-being. Follow-up Provider: Gasper Rose MD Follow-up with PCP in: 2 weeks Provider: Aníbal Rose MD Follow-up in: 2 weeks Attending Statement The patient was seen and examined together with Dr. Quintero on 06/18/2016 and I agree with the history, exam and plan as outlined in the note above. . copies to: Aníbal Rose MD; Gasper Rose MD, COREY P DO Jun 21, 2016 15:10 Gasper Waggoner MD Jun 22, 2016 07:40
== END 2016-06-18 19:00 | disposition home or self-care (01) ==
LOC: EDBD 19:48 → SED 19:48 → PCC 06-17 00:48
PROVIDERS: ADMIT Internal Medicine; ATTEND Internal Medicine
DX: R07.9 Chest pain, unspecified (principal); I10 Essential (primary) hypertension; E87.6 Hypokalemia; E10.65 Type 1 diabetes mellitus with hyperglycemia; G35 Multiple sclerosis; J45.909 Unspecified asthma, uncomplicated; K57.30 Diverticulosis of large intestine without perforation or abscess without bleeding; M19.91 Primary osteoarthritis, unspecified site; Z95.1 Presence of aortocoronary bypass graft; I25.2 Old myocardial infarction
CPT/HCPCS: 36415; 71010; 78452; 80048; 80053; 80061; 81000; 83036; 83735; 83880; 84443; 84484; 85025; 85610; 93005; 93017; 96374; 96376; 99285; A9502; G0378; J0360; J1815; J7030